=== PATIENT | female | born 1985 | race Caucasian/White ===

== ENCOUNTER → 2018-07-08 13:59 | Outpatient (CLI) | payer OTHER, SELFPAY ==
[2017-04-22 20:25] VITALS: BMI 35.1
--- NOTE | 2018-07-08 14:10 | RAD_ITS ---
STUDY: X-RAY - PELVIS REASON FOR EXAM: Female, 33 years old. Episcleritis. TECHNIQUE: One view of the pelvis was obtained. COMPARISON: None. FINDINGS: There is a non-specific bowel gas pattern. Normal visualized soft tissue structures. Normal bilateral iliac wings, sacroiliac joints and visualized sacrum. Normal visualized bilateral superior and inferior pubic rami. Normal pubic symphysis. Normal ischial tuberosities. Normal visualized right femoral head. Normal right acetabulum. Normal right hip joint. Normal visualized left femoral head. Normal left acetabulum. Normal left hip joint. RAD/Pelvis 1 or 2 Views IMPRESSION: Normal x-ray examination of the pelvis. No evidence of an inflammatory arthritis. Electronically Signed: Jean Pierre Casey MD at 3:08 EST , Service support ,
--- NOTE | 2018-07-08 14:10 | RAD_ITS ---
STUDY: X-RAY - LUMBAR SPINE REASON FOR EXAM: Female, 33 years old. Episcleritis. TECHNIQUE: 3 view(s) of the lumbar spine were obtained. COMPARISON: None FINDINGS: Normal lumbar lordosis. There is no substantial scoliosis. There is a normal alignment of the vertebrae. Normal vertebral bodies and endplates. Mild disc space narrowing L1-L2, L2-L3 and L5-S1. The soft tissue structures are unremarkable. Sacroiliac joints are normal. RAD/Lumbar Spine 2 or 3 Views IMPRESSION: Mild multilevel degenerative changes of the lumbar spine most prominent at L5-S1. Electronically Signed: Jean Pierre Casey MD at 3:15 EST , Service support ,
[2018-07-08 15:45] LABS: Absolute Lymphocyte Count 3.01 X10^3/ul (0.83-4.51); Absolute Neutrophil Count 5.3 X10^3/uL (2.0-7.7); Basophil# 0.03 X10^3/uL; Basophil% 0.3 % (0-1); Eosinophil# 0.18 X10^3/uL; Hematocrit 44.3 % (37-47); Hemoglobin 14.3 g/dl (12.0-15.0); Lymphocyte # 3.01 X10^3/ul (4.0); Lymphocyte % 32.9 % (19-41); Mean Corp Hgb Conc 32.3 g/gl (32-36); Mean Corpuscular Hgb 28.9 pg (27.0-32.0); Mean Corpuscular Volume 89.7 fL (81-99); Mean Platelet Vol. 10.5 fl (6.2-12.0); Monocyte# 0.61 X10^3/uL; Monocyte% 6.7 % (0-10); Neutrophil # 5.32 X10^3/uL (2.7-7.7); Platelet Count 214 K/mm3 (150-450); RBC Distribution Width CV 13.4 % (11.6-14.6); RBC Distribution Width SD 43.6 fl (35.1-43.9); Red Blood Count 4.94 M/mm3 (4.2-5.4); White Blood Count 9.2 K/mm3 (4.4-11.0)
[2018-07-08 15:47] LABS: POSITIVE COUNT NO; POSITIVE DIFFERENTIAL NO; POSITIVE MORPHOLOGY NO
[2018-07-08 15:52] LABS: ALB/GLOB Ratio 0.8 RATIO (0.9-2.4); AST(SGOT) 188 U/L (15-37); Alanine Aminotransfer ALT/SGPT 259 U/L (13-56); Albumin, Serum 3.7 g/dL (3.2-5.0); Alkaline Phosphatase 73 U/L (45-117); Anion Gap 8 (5-15); BUN 13 mg/dL (7-18); BUN/Creat Ratio 19.8 RATIO (10-20); Chloride 105 mmol/L (98-107); Creatinine, Serum 0.66 mg/dL (0.55-1.02); EST Glomerular Filtration Rate 110 mL/min (>60); Est Glom Filt Rate - Afr Amer 133 mL/min (>60); Globulin 4.5 g/dL (2.2-4.2); Glucose 90 mg/dL (74-106); Protein, Total 8.2 g/dL (6.4-8.2); Rheumatoid Factor < 10.0 IU/mL (<15); Sodium Level 140 mmol/L (136-145)
[2018-07-08 16:19] LABS: Erythrocyte Sedimentation Rate 25 mm/hr (0-20)
[2018-07-13 11:43] LABS: ANTINUCLEAR ANTIBODIES DIRECT Negative (Negative)
[2018-07-15 11:56] LABS: CCP IgG Antibodies 10 units (0-19); HLA B27 Negative (.)
== END ==
PROVIDERS: Referring Provider Internal Medicine Rheumatology; Visit Provider Internal Medicine Rheumatology
DX: H15.103 Unspecified episcleritis, bilateral (principal)
CPT/HCPCS: 36415; 72100; 72110; 72170; 80053; 81374; 85025; 85652; 86038; 86140; 86200; 86431

== ENCOUNTER → 2018-08-10 | Outpatient (CLI) | payer OTHER, SELFPAY ==
[2017-04-22 20:25] VITALS: BMI 35.1
[2018-08-10 17:59] LABS: Ferritin 39 ng/mL (8-252); Iron 98 ug/dL (50-170); Iron Binding Capacity,Total 373 ug/dL (250-450); PERCENT IRON SATURATION 26.3 % (15.0-55.0)
[2018-08-12 14:07] LABS: HEPATITIS B SURFACE AG Negative (Negative)
[2018-08-13 15:51] LABS: Anti-Mitochondrial AB <20.0 Units (0.0-20.0); Anti-Smooth Muscle ABS 9 Units (0-19); Hep B Surface Antibodies Non Reactive (.); Hep C Antibodies 0.1 s/co ratio (0.0-0.9); Hepatitis B Core AB IgM Negative (Negative)
== END | disposition home or self-care (01) ==
LOC: MTLAB 16:24
PROVIDERS: Referring Provider Internal Medicine Rheumatology; Visit Provider Internal Medicine Rheumatology
DX: H15.103 Unspecified episcleritis, bilateral (principal); R74.8 Abnormal levels of other serum enzymes
CPT/HCPCS: 36415; 82728; 83516; 83540; 83550; 86705; 86706; 86803; 87340

== ENCOUNTER → 2018-08-13 09:55 | Outpatient (CLI) | payer OTHER, SELFPAY ==
[2017-04-22 20:25] VITALS: BMI 35.1
--- NOTE | 2018-08-13 09:59 | US_ITS ---
STUDY: ABDOMINAL ULTRASOUND - RIGHT UPPER QUADRANT REASON FOR VISIT: Female, 33 years old. Elevated liver enzymes TECHNIQUE: Ultrasound evaluation of the right upper quadrant was performed with real-time and static sloan-scale imaging. TECHNICAL QUALITY: Limited. Examination limited by bowel gas. COMPARISON: None. FINDINGS: Liver: The liver measures 15 cm. There is increased echogenicity consistent with fatty infiltration. The bile ducts are within normal limits. There is hepatic color flow. The direction of portal flow is hepatopetal. There is no demonstrated mass lesion. Gallbladder: Normal distended gallbladder. The gallbladder wall measures 1.5 mm. There is a negative sonographic Bernstein's sign. There is no pericholecystic fluid. There are no gallstones. Common Bile Duct (C.B.D.): The common bile duct measures 2.2 mm. Pancreas: Normal size of the head, body and tail of the pancreas. There is normal echogenicity of the pancreas. There is no demonstrated pancreatic mass or cyst. Right Kidney: Normal size of the right kidney. The right kidney measures 11.8 cm. Normal renal cortex. The right cortex measures 1.3 cm. There is no demonstrated renal mass or cyst. There is no right hydronephrosis. US/Liver IMPRESSION: Mild fatty liver. Otherwise, unremarkable exam. Electronically Signed: Vincent Barreto DO at 11:45 EDT Tel , Service support ,
== END ==
PROVIDERS: Referring Provider Internal Medicine Rheumatology; Visit Provider Internal Medicine Rheumatology
DX: H15.103 Unspecified episcleritis, bilateral (principal)
CPT/HCPCS: 76705

== ENCOUNTER → 2018-09-30 13:44 | Outpatient (CLI) | payer OTHER, SELFPAY ==
[2018-09-30 13:23] VITALS: BMI 35.1
[2018-09-30 14:09] LABS: Absolute Lymphocyte Count 0.97 X10^3/ul (0.83-4.51); Absolute Neutrophil Count 6.5 X10^3/uL (2.0-7.7); Basophil# 0.01 X10^3/uL; Basophil% 0.1 % (0-1); Eosinophil# 0.02 X10^3/uL; Eosinophils% 0.3 % (0-5); Hematocrit 40.4 % (37-47); Hemoglobin 13.8 g/dl (12.0-15.0); Lymphocyte # 0.97 X10^3/ul (4.0); Lymphocyte % 12.2 % (19-41); Mean Corp Hgb Conc 34.2 g/gl (32-36); Mean Corpuscular Hgb 29.1 pg (27.0-32.0); Mean Corpuscular Volume 85.1 fL (81-99); Mean Platelet Vol. 10.6 fl (6.2-12.0); Monocyte# 0.39 X10^3/uL; Monocyte% 4.9 % (0-10); Neutrophil # 6.52 X10^3/uL (2.7-7.7); Neutrophil % 82.4 % (47-70); POSITIVE COUNT NO; POSITIVE DIFFERENTIAL NO; POSITIVE MORPHOLOGY NO; Platelet Count 186 K/mm3 (150-450); RBC Distribution Width CV 12.8 % (11.6-14.6); RBC Distribution Width SD 39.9 fl (35.1-43.9); Red Blood Count 4.75 M/mm3 (4.2-5.4); White Blood Count 7.9 K/mm3 (4.4-11.0)
[2018-09-30 14:14] LABS: Glucose Challenge Gest 1H 50g 139 mg/dL (70-140)
[2018-09-30 16:02] LABS: HIV - WCH Non-Reactive (Nonreactive); Rubella IgG 111.8 IU/mL
[2018-09-30 19:15] LABS: Chlamydia Trachomatis by PCR Negative (Negative); Neisserai gonorrhoeae by PCR Negative (Negative); Probe Check PASS; Sample Adequacy Control PASS; Specimen Processing Control PASS
[2018-10-02 01:45] LABS: Rapid Plasmin Reagin (RPR) NONREACTIVE (NONREACTIVE)
[2018-10-02 12:26] LABS: HEPATITIS B SURFACE AG Negative (Negative)
[2018-10-06 09:41] LABS: HPV APTIMA, High Risk Negative (Negative)
== END ==
PROVIDERS: Visit Provider Obstetrics & Gynecology
DX: O99.210 Obesity complicating pregnancy, unspecified trimester (principal); Z3A.00 Weeks of gestation of pregnancy not specified
CPT/HCPCS: 36415; 82950; 85025; 86592; 86703; 86762; 86850; 86900; 87086; 87340; 87491; 87591; 87624; 88175; G0145

== ENCOUNTER → 2018-10-16 12:51 | Outpatient (CLI) | payer OTHER, SELFPAY ==
[2018-09-30 13:23] VITALS: BMI 35.1
== END ==
PROVIDERS: Referring Provider Obstetrics & Gynecology; Visit Provider Obstetrics & Gynecology
DX: Z34.81 Encounter for supervision of other normal pregnancy, first trimester (principal)
CPT/HCPCS: 86850

== ENCOUNTER → 2018-11-18 09:52 | Outpatient (CLI) | payer OTHER, SELFPAY ==
[2018-10-27 15:45] VITALS: BMI 35.1
[2018-11-18 11:09] LABS: Glucose GTT-Gestation. Fasting 82 mg/dL (<105)
[2018-11-18 12:42] LABS: Glucose GTT-Gestational 2 Hr 103 mg/dL (<165)
[2018-11-18 12:43] LABS: Glucose GTT-Gestational 1 Hr 133 mg/dL (<190)
[2018-11-18 14:01] LABS: Glucose GTT-Gestational 3 Hr 106 L (<145)
== END ==
PROVIDERS: Referring Provider Obstetrics & Gynecology; Visit Provider Obstetrics & Gynecology
DX: R73.09 Other abnormal glucose (principal)
CPT/HCPCS: 36415; 82951; 82952

== ENCOUNTER → 2019-02-11 12:49 | Outpatient (CLI) | payer OTHER, SELFPAY ==
[2019-02-11 12:24] VITALS: BMI 35.1
[2019-02-11 13:18] LABS: Absolute Lymphocyte Count 1.64 X10^3/uL (0.83-4.51); Absolute Neutrophil Count 7.1 X10^3/uL (2.0-7.7); Basophil# 0.02 X10^3/uL; Basophil% 0.2 % (0-1); Eosinophil# 0.05 X10^3/uL; Eosinophils% 0.5 % (0-5); Hematocrit 35.3 % (37-47); Hemoglobin 11.7 g/dL (12.0-15.0); Lymphocyte # 1.64 X10^3/ul (4.0); Lymphocyte % 17.7 % (19-41); Mean Corp Hgb Conc 33.1 g/dL (32-36); Mean Corpuscular Hgb 29.2 pg (27.0-32.0); Mean Platelet Vol. 9.9 fl (6.2-12.0); Monocyte% 4.3 % (0-10); NRBC Flagged by Analyzer 0 % (0-5); Neutrophil # 7.13 X10^3/uL (2.7-7.7); Neutrophil % 77.1 % (47-70); Platelet Count 191 K/mm3 (150-450); RBC Distribution Width CV 13.2 % (11.6-14.6); RBC Distribution Width SD 42.5 fl (35.1-43.9); Red Blood Count 4.01 M/mm3 (4.2-5.4); White Blood Count 9.3 K/mm3 (4.4-11.0)
[2019-02-11 13:25] LABS: Glucose Challenge Gest 1H 50g 116 mg/dL (70-140)
== END ==
PROVIDERS: Referring Provider Obstetrics & Gynecology; Visit Provider Obstetrics & Gynecology
DX: Z34.92 Encounter for supervision of normal pregnancy, unspecified, second trimester (principal)
CPT/HCPCS: 36415; 82950; 85025; 86850; 86900; 86901

== ENCOUNTER → 2019-03-02 13:06 | Outpatient (CLI) | payer OTHER, SELFPAY ==
[2019-02-25 15:26] VITALS: BMI 35.1
[2019-03-02 13:45] LABS: Erythrocyte Sedimentation Rate 30 mm/hr (0-20)
[2019-03-02 13:46] LABS: Absolute Lymphocyte Count 1.63 X10^3/uL (0.83-4.51); Absolute Neutrophil Count 5.7 X10^3/uL (2.0-7.7); Basophil# 0.01 X10^3/uL; Basophil% 0.1 % (0-1); Eosinophil# 0.04 X10^3/uL; Eosinophils% 0.5 % (0-5); Hematocrit 35.6 % (37-47); Hemoglobin 11.7 g/dL (12.0-15.0); Lymphocyte # 1.63 X10^3/ul (4.0); Lymphocyte % 20.7 % (19-41); Mean Corp Hgb Conc 32.9 g/dL (32-36); Mean Corpuscular Hgb 29.2 pg (27.0-32.0); Mean Corpuscular Volume 88.8 fL (81-99); Mean Platelet Vol. 10.2 fl (6.2-12.0); Monocyte# 0.47 X10^3/uL; NRBC Flagged by Analyzer 0 % (0-5); Neutrophil # 5.71 X10^3/uL (2.7-7.7); Neutrophil % 72.3 % (47-70); Platelet Count 184 K/mm3 (150-450); RBC Distribution Width CV 13.3 % (11.6-14.6); RBC Distribution Width SD 43.4 fl (35.1-43.9); Red Blood Count 4.01 M/mm3 (4.2-5.4); White Blood Count 7.9 K/mm3 (4.4-11.0)
[2019-03-02 13:47] LABS: ALB/GLOB Ratio 0.6 RATIO (0.9-2.4); AST(SGOT) 9 U/L (15-37); Alanine Aminotransfer ALT/SGPT 11 U/L (13-56); Albumin, Serum 2.6 g/dL (3.2-5.0); Alkaline Phosphatase 80 U/L (45-117); Anion Gap 6 (5-15); BUN 9 mg/dL (7-18); BUN/Creat Ratio 17.5 RATIO (10-20); Calcium,Total 9.1 mg/dL (8.5-10.1); Chloride 109 mmol/L (98-107); Creatinine, Serum 0.52 mg/dL (0.55-1.02); EST Glomerular Filtration Rate 144 mL/min (>60); Est Glom Filt Rate - Afr Amer 175 mL/min (>60); Globulin 4.6 g/dL (2.2-4.2); Glucose 87 mg/dL (74-106); Potassium 3.8 mmol/L (3.5-5.1); Protein, Total 7.2 g/dL (6.4-8.2); Sodium Level 139 mmol/L (136-145)
== END ==
PROVIDERS: Referring Provider Internal Medicine Rheumatology; Visit Provider Internal Medicine Rheumatology
DX: H15.103 Unspecified episcleritis, bilateral (principal); K76.0 Fatty (change of) liver, not elsewhere classified; R74.8 Abnormal levels of other serum enzymes
CPT/HCPCS: 36415; 80053; 85025; 85652; 86140

== ENCOUNTER → 2019-04-08 17:22 | Outpatient (CLI) | payer OTHER, SELFPAY ==
[2019-04-08 15:42] VITALS: BMI 35.1
== END ==
PROVIDERS: Referring Provider Obstetrics & Gynecology; Visit Provider Obstetrics & Gynecology
DX: N76.89 Other specified inflammation of vagina and vulva (principal)
CPT/HCPCS: 87070; 87077; 87186; 87205

== ENCOUNTER → 2019-04-15 17:32 | Outpatient (CLI) | payer OTHER, SELFPAY ==
[2019-04-15 15:50] VITALS: BMI 35.1
== END ==
PROVIDERS: Visit Provider Obstetrics & Gynecology
DX: O09.519 Supervision of elderly primigravida, unspecified trimester (principal); Z3A.00 Weeks of gestation of pregnancy not specified
CPT/HCPCS: 87081

== ENCOUNTER 2019-05-03 13:05 | Inpatient (IN) | payer OTHER, SELFPAY ==
[2019-04-30 15:45] VITALS: BMI 35.1
--- NOTE | 2019-05-03 11:25 | US_ITS ---
STUDY: SECOND AND THIRD TRIMESTER OBSTETRICAL ULTRASOUND-Limited REASON FOR EXAM: Female, 33 years old GROWTH routine survey LMP: Unknown. TECHNIQUE: Transabdominal TECHNICAL QUALITY: Adequate. PRIOR ULTRASOUND: No recent studies FINDINGS: There is a single intrauterine fetus. The fetus is in a cephalic presentation. There is demonstrated cardiac activity with a heart rate of 133 bpm. There is a borderline low normal amniotic fluid volume. The largest amniotic fluid pocket measures 3.0 cm. The amniotic fluid index (GREG) is 4.0 cm. The placenta is posterior in location and is not low lying. There are Grade 2 placental changes. The cervix is not visualized. Incidental note that the cord is noted along the posterior neck BIOMETRY: BPD: 9.5 cm: 39 weeks, 0 days HC: 33.9 cm: 39 weeks, 1 days AC: 34.4 cm: 38 weeks, 3 days FL: 7.8 cm: 40 weeks, 0 days age by current US: 39 weeks, 1 days. ACE by current US: 05/09/2019. Estimated weight: 3614 grams, +/- 528 grams, 56 %. US/OB Limited With Biometrics IMPRESSION: Single live intrauterine at 39 weeks and 1 day by current ultrasound with ACE of 05/09/2019. Heart rate at 133 bpm. No suspicious sonographic findings, GREG however is low normal at 4.0 cm total Electronically Signed: Robinson Banerjee MD at 12:23 EST , Service support ,
[2019-05-03 13:28] VITALS: BMI 36.9
[2019-05-03] MEDS: Lactated Ringers 1,000 ML 50 ML IV (13:45)
[2019-05-03 14:06] LABS: Absolute Lymphocyte Count 1.62 X10^3/uL (0.83-4.51); Absolute Neutrophil Count 8.7 X10^3/uL (2.0-7.7); Basophil# 0.01 X10^3/uL; Basophil% 0.1 % (0-1); Eosinophil# 0.05 X10^3/uL; Eosinophils% 0.5 % (0-5); Hematocrit 34.9 % (37-47); Hemoglobin 11.7 g/dL (12.0-15.0); Lymphocyte # 1.62 X10^3/ul (4.0); Lymphocyte % 14.9 % (19-41); Mean Corp Hgb Conc 33.5 g/dL (32-36); Mean Corpuscular Hgb 28.3 pg (27.0-32.0); Mean Corpuscular Volume 84.3 fL (81-99); Mean Platelet Vol. 10.5 fl (6.2-12.0); Monocyte# 0.47 X10^3/uL; Monocyte% 4.3 % (0-10); NRBC Flagged by Analyzer 0 % (0-5); Neutrophil # 8.71 X10^3/uL (2.7-7.7); Neutrophil % 79.8 % (47-70); Platelet Count 182 K/mm3 (150-450); RBC Distribution Width SD 43.2 fl (35.1-43.9); Red Blood Count 4.14 M/mm3 (4.2-5.4); White Blood Count 10.9 K/mm3 (4.4-11.0)
[2019-05-03] MEDS: 0.9% Normal Saline Single 100 ML IV.SOLN. IY (14:15)
[2019-05-03] MEDS: Lactated Ringers 500 ML 999 ML IV ×2 (14:45→21:00)
[2019-05-03] MEDS: Oxytocin 30 units/NS 500 ml 30 UNITS/500 ML IV.SOLN IV (15:44)
--- NOTE | 2019-05-03 16:51 | HP.PCM_ITS ---
- Problem List (1) Oligohydramnios Status: Acute (2) Rh negative status during Status: Acute Comment: 28 weeks given and PRN (3) ASCUS of cervix with negative high risk HPV Status: Acute Comment: repeat in 1 year (4) Obesity affecting Status: Acute Qualifiers: Trimester: first trimester Qualified Code(s): O99.211 - Obesity complicating , first trimester Comment: 1 tm glucola abnormal- 3 hour gtt-normal, encouraged healthy weight gain (5) Status: Acute Qualifiers: Weeks of gestation: 39 weeks Qualified Code(s): Z3A.39 - 39 weeks gestation of Comment: nl NIPT, carrier and ntd declined (6) Encounter for supervision of high risk primigravida of advanced maternal age Status: Acute Comment: PRR ACE 05/06/19 girl name surprise Anthony History Date of Admission: 05/04/19 Final ACE: 05/06/19 Gestational age: 39 Weeks and 5 Days History of this : This is a 34 year-old, at 39 weeks gestational age presents for IOL secondary to oligohydramnios. She has had a complicated by advanced maternal age but otherwise no issues. She is a history of infertility. Patient was scanned for routine growth scan and fluid level was 4 cm today. Medical History: Medical History (Last Reviewed 04/30/19 @ 15:44 by Chey Rich) HPV test positive Hay fever J30.1 Surgical History: Surgical History (Last Reviewed 04/30/19 @ 15:44 by Chey Rich) History of shoulder surgery Z98.890 left Status post colposcopy Z98.890 S/P wisdom tooth extraction Z98.818 s/p cyst removal tailbone s/p finger surgery left Allergies No Known Allergies Allergy (Verified 04/30/19 15:44) Home Medications: Home Medications Vits [Prenatabs FA] 1 tab PO DAILY 05/03/19 Smoking Status: Former smoker Alcohol: None Number of Fetus(es): 1 NST - FHR Rate Baby A Baseline: 130 Variability:: Moderate Accelerations:: 15 x 15 Decelerations:: None NST Reactive:: Yes FHR Category:: Category I Uterine Activity:: Every 3 to 5 History Past Pregnancies: Past Pregnancies Previous early miscarriage Delivery Date Name GA/ Weeks Outcome Route Wt Sex Labor Length Anesthesia Delivery Location Provider FOB Labs: Mom's Current Diagnoses Supervision of elderly primigravida, unspecified trimester 05/03/19 Obesity complicating , first trimester 05/03/19 Mom's Problem List Problem Status Onset Code Oligohydramnios Acute O41.00X0 Mom's Labs & Results 05/03/19 05/03/19 13:45 13:45 WBC 10.9 RBC 4.14 L Hgb 11.7 L Hct 34.9 L MCV 84.3 MCH 28.3 MCHC 33.5 RDW Std Deviation 43.2 RDW Coeff of Jerardo 14.0 Plt Count 182 MPV 10.5 Immature Gran % (Auto) 0.400 Neut % (Auto) 79.8 H Lymph % (Auto) 14.9 L [place] % (Auto) 4.3 Eos % (Auto) 0.5 Baso % (Auto) 0.1 Absolute Neuts (auto) 8.7 H Absolute Lymphs (auto) 1.62 Nucleated RBC % 0 Blood Type O NEGATIVE Antibody Screen NEGATIVE Course Did the patient receive Yes care? Labs Blood Type: O RH: NEGATIVE RPR/VDRL/Syphilis Nonreactive Rubella status Immune HbSAg Negative Date Done: 09/30/18 Chlamydia Negative Gonorrhea Negative HIV/AIDS Non-Reactive Group B Strep: Negative Current Obstetrical History Gestational Diabetes No Incompetent Cervix No Infertility No IUGR No Macrosomia No Hypertension/Pre-eclampsia No Placenta Previa/Abruption No PTL/PROM No Uterine anomaly No Oligohydramnios Yes Polyhydramnios No Multiple gestation No Past Medical History Asthma No Diabetes No Hypertension No Heart disease No Mitral valve prolapse No Neurologic/Seizure disorder/ No Migraines Kidney disease No Liver disease Yes: fatty liver has gone down Varicosities No Clotting disorders/Hx of DVT No Thyroid Dysfunction No Other medical diseases No Psychiatric disorders No Major trauma No Abnormal PAP smear Yes: hpv Sleep apnea No Mammogram in the last 2 years No Social History Marital Status: Alleged father derik feliciano Hx Smoking Yes Smoking Status Former smoker Expected Infant Delivery Method: Spontaneous Vaginal Review of Systems Constitutional: Denies: Fever, Malaise Eyes: Denies: Blurred vision, Vision Change HEENT: Denies: Head Aches, Visual Changes Cardiovascular: Denies: Chest Pain, Palpitations Respiratory: Denies: Cough, Shortness of Breath, Wheezing Gastrointestinal: Denies: Abdominal Pain, Diarrhea, Nausea, Vomiting Genitourinary: Denies: Dysuria, Hematuria Musculoskeletal: Denies: Joint Pain, Muscle pain Skin: Denies: Lesions, Rash Neurological: Denies: Blurred vision, Focal weakness, Headaches Psychiatric: Denies: Anxiety, Depression Endocrine: Denies: Heat/ Cold Intolerance Hematologic/ Lymphatic: Denies: Easy Bruising, Easy Bleeding Physical Exam General: Alert, Cooperative, No apparent distress HEENT: Atraumatic, Normocephalic. Negative for: Thyromegaly, Lymphadenopathy Cardiovascular: Regular rate Lungs: Normal air movement Abdomen: Soft, Non Tender, Gravid Neurological: Deep Tendon Reflexes 2+/4 and Symmetrical, Neuro grossly intact. Negative for: Clonus MEDICAL LAB DIRECTOR: Normal external genitalia. Negative for: Vulvar lesions Estimated gestational size: Appropriate for gestational size Presentation: Cephalic Assessment/Plan All Active Problems (Last Reviewed 04/30/19 @ 15:44 by Chey Rich) Oligohydramnios (Acute) Acute sinusitis, unspecified (Acute) Rh negative status during (Acute) ASCUS of cervix with negative high risk HPV (Acute) Obesity affecting (Acute) (Acute) Encounter for supervision of high risk primigravida of advanced maternal age (Acute) Low lying placenta nos or without hemorrhage, unspecified trimester (Resolved) This is a 34 year-old, at 39 weeks gestational age Zentz for induction of labor secondary to oligohydramnios Patient presents IOL, plan management for , initially attempted placement of Crespo bulb and significant vaginal bleeding was noted through the catheter and t herefore it was removed and patient was noted to be 3/70 and -1 therefore the membranes were ruptured and internal monitors were placed. Fairly clear fluid was noted and no persistent bleeding was seen and patient was stable for continued induction of labor.. Pain management: [plans epidural]. GBS [negative]. Management of any complications: New onset diagnosis of oligohydramnios 4 cm I have reviewed the [facility] and made any clinically relevant updates..
[2019-05-03] MEDS: Lactated Ringers 1,000 ML 200 ML IV (20:02)
[2019-05-03] MEDS: Morphine 4 MG/ML Syringe IV (20:03)
[2019-05-03] MEDS: fentaNYL-bupivacaine (epidural) 100 ML BAG EPIDURAL (21:17)
[2019-05-04] MEDS: Lactated Ringers 1,000 ML 200 ML IV (01:41)
--- NOTE | 2019-05-04 02:00 | PCM.OPRPT ---
Problem List (1) Oligohydramnios Status: Acute (2) Rh negative status during Status: Acute Comment: 28 weeks given and PRN (3) ASCUS of cervix with negative high risk HPV Status: Acute Comment: repeat in 1 year (4) Obesity affecting Status: Acute Qualifiers: Trimester: first trimester Qualified Code(s): O99.211 - Obesity complicating , first trimester Comment: 1 tm glucola abnormal- 3 hour gtt-normal, encouraged healthy weight gain (5) Status: Acute Qualifiers: Weeks of gestation: 39 weeks Qualified Code(s): Z3A.39 - 39 weeks gestation of Comment: nl NIPT, carrier and ntd declined (6) Encounter for supervision of high risk primigravida of advanced maternal age Status: Acute Comment: PRR ACE 05/06/19 girl name surprise Anthony Report of Operation Date of Procedure: 05/04/19 Pre-Operative Diagnosis: iol oligo Post-Operative Diagnosis: same Vaginal Delivery Maternal Presentation: Medically Indicated Induction iol oligo Method of Induction: Pitocin Medical Reason for Induction: - - oligo Amniotic Membrane Rupture Type: Artificial Amniotic Fluid Description: Clear, Bloody Final ACE: 05/06/19 Gestational age: 39 Weeks and 6 Days Date of Procedure: 05/04/19 Pre-Operative Diagnosis: iol oligo Post-Operative Diagnosis: same Surgery/ Procedure Performed: Spontaneous Vaginal Delivery Type of Anesthesia: Epidural Description of Procedure: Patient began pushing and delivered the head in the [ISATU] presentation. The head was delivered atraumatically. The anterior and posterior shoulders delivered without complication followed by the rest of the and the was placed on the maternal abdomen. Delayed cord clamping was employed for approximately 60 seconds. Cord was clamped and cut and gentle traction was applied to the cord and the placenta delivered spontaneously immediately following it was noted to be intact with three-vessel cord. The perineum and vagina were inspected and noted to have a second-degree perineal laceration. EBL was 100 cc. There was uterine atony noted in the absence of hemorrhage which was treated with 1 dose of Methergine. Manual massage was also used.. Patient and tolerated delivery well. Presentation: ISATU Placental Delivery Description: Spontaneous Placenta Disposition: [facility] Cord Vessel Description: 3 Vessels Cord Entanglement: None Estimated Blood Loss: 400 A gender: Female Episiotomy Description: None Laceration: Perineal Extension/lac, 2nd degree Medications given after delivery: IV Pitocin, IM Methergin Complications: None Multi Select Codes - Urinary/Genital Urinary/Genital CPT Codes: 68318 Vaginal Delivery [facility]
[2019-05-04] MEDS: fentaNYL-bupivacaine (epidural) 100 ML BAG EPIDURAL (02:33)
[2019-05-04] MEDS: Oxytocin 30 units/NS 500 ml 30 UNITS/500 ML IV.SOLN 334 UNITS IV (02:53)
[2019-05-04] MEDS: Methylergonovine 0.2 MG/ML Ampul IM (02:54)
[2019-05-04] MEDS: Lactated Ringers 1,000 ML 999 ML IV (03:54)
[2019-05-04 04:08] LABS: Hemoglobin 10.6 g/dL (12.0-15.0)
[2019-05-04] MEDS: Naproxen 250 MG Tablet 500 MG PO ×3 (04:14→22:21)
[2019-05-04 08:00] VITALS: BP 128/77; PULSE 82; RESP 16; TEMP 36.2
[2019-05-04] MEDS: Acetaminophen 500 MG Tablet 1000 MG PO ×2 (08:09→15:30)
[2019-05-04 12:35] VITALS: BP 122/65; PULSE 88; RESP 16; TEMP 36.4
[2019-05-04 15:30] VITALS: BP 106/61; PULSE 74; RESP 16; TEMP 36.2
[2019-05-04] MEDS: oxyCODONE 5 MG Tablet PO ×2 (15:30→22:16)
--- NOTE | 2019-05-04 16:23 | NURSING ---
1500 k mihaela into see pt
[2019-05-04 20:50] VITALS: BP 101/62; PULSE 80; RESP 18; TEMP 36.2
[2019-05-05 00:45] VITALS: BP 105/58; PULSE 72; RESP 16; TEMP 36.6
[2019-05-05] MEDS: oxyCODONE 5 MG Tablet PO ×3 (02:58→15:36)
[2019-05-05] MEDS: Acetaminophen 500 MG Tablet 1000 MG PO ×2 (02:58→18:10)
[2019-05-05 05:46] VITALS: BP 101/57; PULSE 76; RESP 16; TEMP 36.3
[2019-05-05 09:31] VITALS: BP 107/60; PULSE 73; RESP 14; TEMP 36.4
[2019-05-05] MEDS: Naproxen 250 MG Tablet 500 MG PO ×2 (09:42→18:10)
--- NOTE | 2019-05-05 12:03 | PCM.PN.OB ---
Patient Problems: Active and Suspected Problems (Last Reviewed 04/30/19 @ 15:44 by Chey Rich) Oligohydramnios (Acute) Subjective: doing well no complaints pain controlled no CP SOB N V ambulating well tolerating po lochia moderate, going well - Physical Exam Vitals/I&O's: Vital Signs Temp Pulse Resp BP 97.6 F L 73 14 107/60 05/05/19 09:31 05/05/19 09:31 05/05/19 09:31 05/05/19 09:31 Oxygen Delivery Method Room Air Weight: 235 lb 14.314 oz Body Mass Index (BMI) 36.9 Intake and Output for Last 24 Hours 05/03/19 05/04/19 05/05/19 23:59 23:59 23:59 Intake Total 2025.6 / 5.6 2753.74 / 2753.74 Output Total 500 / 500 Balance 2025.6 / 2025.6 2253.74 / 2253.74 General: Alert, Oriented x3 Current Medications Acetaminophen (Tylenol) 1,000 mg PO Q8H PRN PRN PRN Reason: Pain Score 1-310 Last Admin: 05/05/19 02:58 Dose: 1,000 mg Documented by: Bisacodyl (Dulcolax) 10 mg RECTAL UD PRN PRN Reason: If no BM Dibucaine (Dibucaine) 1 applic TOPICAL TID PRN PRN; Protocol PRN Reason: Discomfort Hydrocortisone (Hytone) 1 applic TOPICAL TID PRN PRN; Protocol PRN Reason: Discomfort Methylergonovine Maleate (Methergine) 0.2 mg IM X1 PRN PRN Reason: Excess bleeding/uterine atony Last Admin: 05/04/19 02:54 Dose: 0.2 mg Documented by: Naproxen (Naprosyn) 500 mg PO Q8H PRN PRN PRN Reason: Pain Score 1-310 Last Admin: 05/05/19 09:42 Dose: 500 mg Documented by: Ondansetron HCl (Zofran) 4 mg IV Q4H PRN PRN PRN Reason: Nausea Oxycodone HCl (Oxyir) 5 - 10 mg PO Q4H PRN PRN PRN Reason: Pain Score 4-1010 Last Admin: 05/05/19 10:03 Dose: 5 mg Documented by: Multivit/Folic Acid/Iron (Prenatabs Fa) 1 tablet PO DAILY CARLOS Last Admin: 05/05/19 10:04 Dose: Not Given Documented by: Senna/Docusate Sodium (Senokot-S, Clara-Colace) 1 - 2 tablet PO DAILY PRN PRN PRN Reason: Constipation Simethicone (Mylicon) 80 mg PO PCHS PRN PRN Reason: Indigestion/Stomach pain Sodium Chloride () 5 - 15 ml IV UD PRN PRN Reason: SALINE FLUSH Medical Necessity - Tobacco Use Smoking Status: Former smoker Assessment/Plan All Active Problems (Last Reviewed 04/30/19 @ 15:44 by Chey Rich) Oligohydramnios (Acute) Acute sinusitis, unspecified (Acute) Rh negative status during (Acute) ASCUS of cervix with negative high risk HPV (Acute) Obesity affecting (Acute) (Acute) Encounter for supervision of high risk primigravida of advanced maternal age (Acute) Low lying placenta nos or without hemorrhage, unspecified trimester (Resolved) s/p PPD # 1 1. routine post delivery care 2. breast feeding- support given 3. rh positive 4. rubella immune
[2019-05-05 13:10] VITALS: BP 122/61; PULSE 71; RESP 18; TEMP 36.6
--- NOTE | 2019-05-05 16:31 | NURSING ---
no discharge instructions in pt.'s reports. this RN spoke to Dr. Kyle, physician gave instructions to this RN to give routine vaginal delivery instructions from M[facility]i for discharge.
[2019-05-05 17:55] VITALS: BP 117/65; PULSE 86; RESP 18; TEMP 36.6
== END 2019-05-05 18:50 | disposition home or self-care (01) | DRG 807 ==
LOC: WP 13:09
PROVIDERS: Admitting Provider Obstetrics & Gynecology; Referring Provider Obstetrics & Gynecology; Visit Provider Obstetrics & Gynecology
DX: O41.03X0 Oligohydramnios, third trimester, not applicable or unspecified (principal); Z37.0 Single live birth; O99.214 Obesity complicating childbirth; E66.9 Obesity, unspecified; O62.2 Other uterine inertia; O70.1 Second degree perineal laceration during delivery; Z3A.39 39 weeks gestation of pregnancy
CPT/HCPCS: 59025; 59050; 76816; 85018; 85025; 86850; 86900; 86901; 99218; J7120; G0378

== ENCOUNTER → 2019-05-09 07:49 | Outpatient (CLI) | payer OTHER, SELFPAY ==
[2019-05-03 13:28] VITALS: BMI 36.9
== END ==
PROVIDERS: Referring Provider Obstetrics & Gynecology; Visit Provider Obstetrics & Gynecology
DX: Z39.1 Encounter for care and examination of lactating mother (principal)
CPT/HCPCS: 96152

== ENCOUNTER → 2019-06-18 13:06 | Outpatient (CLI) | payer OTHER, SELFPAY ==
[2019-06-18 07:41] VITALS: BMI 36.9
[2019-06-18 13:27] LABS: Mucous, Urine 0 SEEN /hpf (<or=2+)
[2019-06-18 14:54] LABS: Color, Urine Yellow (Yellow); Glucose, Dipstick Normal (Normal); Ketone-Dipstick 5 mg/dl (Negative); Leukocyte Esterase-Dipstick 500 /ul (Negative); Nitrite-Dipstick Negative (Negative); Occult Blood-Urine 50 /ul (Negative); Protein-Dipstick 30 mg/dl (Negative); Specific Gravity, Urine 1.025 (1.002-1.030); Urine Bilirubin Dipstick Negative (Negative); Urine Clarity Cloudy (Clear); Urine Urobilinogen Normal (Normal)
[2019-06-18 15:18] LABS: Red Blood Cells-Urine 0-5 SEEN /hpf (0-5); Squamous Epithelial Cells - UA 25-50 SEEN /hpf (5-10); White Blood Cells 25-50 SEEN /hpf (0-5)
[2019-06-18 15:19] LABS: Bacteria 2+ /hpf (None Seen)
== END ==
PROVIDERS: Referring Provider Physician Assistant Surgical; Visit Provider Physician Assistant Surgical
DX: R39.15 Urgency of urination (principal)
CPT/HCPCS: 81001; 87086; 87088

== ENCOUNTER → 2019-06-24 15:07 | Outpatient (CLI) | payer OTHER, SELFPAY ==
[2019-06-23 15:27] VITALS: BMI 36.9
== END ==
PROVIDERS: Referring Provider Obstetrics & Gynecology; Visit Provider Obstetrics & Gynecology
DX: Z87.440 Personal history of urinary (tract) infections (principal)
CPT/HCPCS: 87086

== ENCOUNTER → 2020-06-12 14:32 | Outpatient (CLI) | payer OTHER, SELFPAY ==
[2020-06-02 15:09] VITALS: BMI 38.9
--- NOTE | 2020-06-12 14:33 | US_ITS ---
STUDY: ULTRASOUND BREAST - RIGHT REASON FOR EXAM: Female, 35 years old. Palpable lump in the right breast. The patient is currently nursing. TECHNIQUE: Axial and longitudinal images of the RIGHT breast were performed with a high resolution ultrasound transducer. # OF IMAGES: 20 COMPARISON: None. FINDINGS: RIGHT Breast: There is a 6 mm x 5 mm x 4 mm hypoechoic solid lesion just deep to the skin surface at the 2 o''clock position of the breast at 12 cm from nipple. This most likely represents an infected sebaceous cyst. IMPRESSION: 6 mm x 5 mm x 4 mm hypoechoic solid nodule deep to the skin surface at the 2 o''clock position of the breast at 12 cm from the nipple. This most likely represents a cutaneous lesion. ASSESSMENT CATEGORY: BIRADS Category 2: Benign. A letter regarding these results will be sent to the patient by the facility within 30 days. Electronically Signed: Julius Dailey MD at 15:43 EST , Service support , STUDY: ULTRASOUND BREAST - LEFT REASON FOR EXAM: Female, 35 years old. Palpable lump left breast. TECHNIQUE: Axial and longitudinal images of the LEFT breast were performed with a high resolution ultrasound transducer. # OF IMAGES: 20 COMPARISON: None. FINDINGS: LEFT Breast: The palpable abnormality corresponds to a 1.2 cm x 1.2 cm x 0.3 cm echogenic nodule at the 9 o''clock position of the breast at 12 cm from nipple. This is just deep to the skin surface. This may represent a small lipoma. US/Breast Limited Unilateral IMPRESSION: The palpable abnormality corresponds to a superficial nodule suggestive of a small lipoma. ASSESSMENT CATEGORY: BIRADS Category 2: Benign. A letter regarding these results will be sent to the patient by the facility within 30 days. Electronically Signed: Julius Dailey MD at 15:49 EST , Service support ,
== END ==
PROVIDERS: Referring Provider Obstetrics & Gynecology; Visit Provider Obstetrics & Gynecology
DX: N63.10 Unspecified lump in the right breast, unspecified quadrant (principal)
CPT/HCPCS: 76642

== ENCOUNTER → 2020-09-25 16:48 | Outpatient (CLI) | payer OTHER, SELFPAY ==
[2020-09-25 09:35] VITALS: BMI 38.3
[2020-09-28 20:08] LABS: Chlamydia By Nucleic Acid AMP Negative (Negative)
[2020-09-29 08:30] LABS: Gonococcus By Nucleic Acid AMP Negative (Negative)
== END ==
PROVIDERS: Referring Provider Obstetrics & Gynecology; Visit Provider Obstetrics & Gynecology
DX: Z11.3 Encounter for screening for infections with a predominantly sexual mode of transmission (principal)
CPT/HCPCS: 87491; 87591

== ENCOUNTER → 2020-10-12 13:57 | Outpatient (CLI) | payer OTHER, SELFPAY ==
[2020-09-25 09:35] VITALS: BMI 38.3
[2020-10-12 14:53] LABS: Absolute Lymphocyte Count 1.89 X10^3/uL (0.83-4.51); Absolute Neutrophil Count 5.9 X10^3/uL (2.0-7.7); Basophil# 0.03 X10^3/uL; Basophil% 0.4 % (0-1); Eosinophil# 0.05 X10^3/uL; Eosinophils% 0.6 % (0-5); Hemoglobin 13.8 g/dL (12.0-15.0); Lymphocyte # 1.89 X10^3/ul (0.83-4.51); Lymphocyte % 22.7 % (19-41); Mean Corp Hgb Conc 34.5 g/dL (32-36); Mean Corpuscular Hgb 30.3 pg (27.0-32.0); Mean Corpuscular Volume 87.9 fL (81-99); Mean Platelet Vol. 11.5 fl (6.2-12.0); Monocyte# 0.44 X10^3/uL; Monocyte% 5.3 % (0-10); NRBC Flagged by Analyzer 0 % (0-5); Neutrophil % 70.8 % (47-70); Platelet Count 200 K/mm3 (150-450); RBC Distribution Width CV 11.9 % (11.6-14.6); RBC Distribution Width SD 38.4 fl (35.1-43.9); Red Blood Count 4.55 M/mm3 (4.2-5.4); White Blood Count 8.3 K/mm3 (4.4-11.0)
[2020-10-12 15:17] LABS: Glucose Challenge Gest 1H 50g 130 mg/dL (70-140)
[2020-10-12 15:40] LABS: NATERA MAILED SPECIMEN
[2020-10-13 09:27] LABS: HIV - WCH Non-Reactive (Nonreactive); Hepatitis B Surface Antigen Non-Reactive (Nonreactive); Hepatitis C Antibody Non-Reactive (Nonreactive); Rubella IgG Reactive (Nonreactive); Syphilis Antibodies Non-reactive
== END ==
PROVIDERS: Referring Provider Obstetrics & Gynecology; Visit Provider Obstetrics & Gynecology
DX: Z34.90 Encounter for supervision of normal pregnancy, unspecified, unspecified trimester (principal)
CPT/HCPCS: 36415; 82950; 85025; 86703; 86762; 86780; 86803; 86850; 86900; 86901; 87340

== ENCOUNTER → 2020-11-22 17:03 | Outpatient (CLI) | payer OTHER, SELFPAY ==
[2020-11-22 15:18] VITALS: BMI 37.5
[2020-11-22 17:31] LABS: Amphetamine Urine VISTA NEGATIVE (<1000 ng/mL); Barbiturate Urine VISTA NEGATIVE (< 200 ng/mL); Benzodiazepine Urine VISTA NEGATIVE (< 200 ng/mL); Cocaine Urine VISTA NEGATIVE (< 300 ng/mL); Ecstacy Urine VISTA NEGATIVE (< 500 ng/mL); Methadone Urine VISTA NEGATIVE (< 300 ng/mL); PCP Urine VISTA NEGATIVE (< 25 ng/mL); THC Urine VISTA NEGATIVE (< 50 ng/mL); Vista UDS pH Range 6
== END ==
PROVIDERS: Visit Provider Nurse Practitioner Women's Health
DX: Z34.90 Encounter for supervision of normal pregnancy, unspecified, unspecified trimester (principal)
CPT/HCPCS: 80307

== ENCOUNTER → 2021-02-12 12:42 | Outpatient (CLI) | payer OTHER, SELFPAY ==
[2021-02-12 13:06] LABS: Absolute Lymphocyte Count 1.41 X10^3/uL (0.83-4.51); Absolute Neutrophil Count 6.4 X10^3/uL (2.0-7.7); Basophil# 0.02 X10^3/uL; Basophil% 0.2 % (0-1); Eosinophil# 0.06 X10^3/uL; Eosinophils% 0.7 % (0-5); Hematocrit 35.5 % (37-47); Hemoglobin 11.5 g/dL (12.0-15.0); Lymphocyte # 1.41 X10^3/ul (0.83-4.51); Lymphocyte % 17.1 % (19-41); Mean Corp Hgb Conc 32.4 g/dL (32-36); Mean Corpuscular Hgb 29.3 pg (27.0-32.0); Mean Corpuscular Volume 90.3 fL (81-99); Mean Platelet Vol. 10.2 fl (6.2-12.0); Monocyte# 0.35 X10^3/uL; Monocyte% 4.2 % (0-10); NRBC Flagged by Analyzer 0 % (0-5); Neutrophil # 6.37 X10^3/uL (2.7-7.7); Neutrophil % 77.4 % (47-70); Platelet Count 178 K/mm3 (150-450); RBC Distribution Width SD 46.5 fl (35.1-43.9); Red Blood Count 3.93 M/mm3 (4.2-5.4); White Blood Count 8.2 K/mm3 (4.4-11.0)
[2021-02-12 13:17] LABS: Glucose Challenge Gest 1H 50g 135 mg/dL (70-140)
== END ==
PROVIDERS: Referring Provider Obstetrics & Gynecology; Visit Provider Obstetrics & Gynecology
DX: O26.899 Other specified pregnancy related conditions, unspecified trimester (principal); Z67.91 Unspecified blood type, Rh negative; Z3A.00 Weeks of gestation of pregnancy not specified
CPT/HCPCS: 36415; 82950; 85025; 86850; 86900; 86901

== ENCOUNTER → 2021-02-13 14:13 | Outpatient (CLI) | payer OTHER, SELFPAY ==
--- NOTE | 2021-02-13 14:34 | US_ITS ---
STUDY: SECOND AND THIRD TRIMESTER OBSTETRICAL ULTRASOUND REASON FOR EXAM: Female, 35 years old growth @ 28 weeks d/t covid during LMP: 07/30/2020. TECHNIQUE: Transabdominal TECHNICAL QUALITY: Adequate. PRIOR ULTRASOUND: None. FINDINGS: There is a single intrauterine fetus. The fetus is in a cephalic presentation. There is demonstrated cardiac activity with a heart rate of 152 bpm. There is a normal amniotic fluid volume. The largest amniotic fluid pocket measures 5 cm x 2.8 cm. The amniotic fluid index (GREG) is 15.7 cm. The placenta is anterior in location and is not low lying. There are Grade 1 placental changes. The cervix measures 3.2 cm in length. The adnexal regions are not visualized. BIOMETRY: BPD: 7.36 cm: 29 weeks, 3 days HC: 27.37 cm: 29 weeks, 6 days AC: 24.17 cm: 28 weeks, 3 days FL: 5.48 cm: 28 weeks, 6 days CI: 78.5% FL/BPD: 74.4% FL/HC: FL/AC: 22.7% HC/AC: 1.13 age by current US: 29 weeks, 0 days. ACE by current US: 05/01/2020. Estimated weight: 1293 grams, +/- 194 grams, 58.2 %. Age by LMP: 28 weeks, 2 days. ACE by LMP: 05/06/2021. US/OB Limited With Biometrics IMPRESSION: Single live intrauterine gestation with a mean gestational age of 29 weeks. Electronically Signed: Julius Dailey MD at 15:43 EDT , Service support ,
== END ==
PROVIDERS: Referring Provider Obstetrics & Gynecology; Visit Provider Obstetrics & Gynecology
DX: O98.519 Other viral diseases complicating pregnancy, unspecified trimester (principal); U07.1 COVID-19; Z3A.00 Weeks of gestation of pregnancy not specified
CPT/HCPCS: 76816

== ENCOUNTER → 2021-03-12 14:03 | Outpatient (CLI) | payer OTHER, SELFPAY ==
--- NOTE | 2021-03-12 14:05 | US_ITS ---
STUDY: SECOND AND THIRD TRIMESTER OBSTETRICAL ULTRASOUND REASON FOR EXAM: Female, 35 years old . growth. LMP: 07/30/2020. TECHNIQUE: Transabdominal TECHNICAL QUALITY: Adequate. PRIOR ULTRASOUND: Comparison is made with prior study dated 02/13/2021. FINDINGS: There is a single intrauterine fetus. The fetus is in a cephalic presentation. There is demonstrated cardiac activity with a heart rate of 147 bpm. There is a normal amniotic fluid volume. The largest amniotic fluid pocket measures 4.3 cm. The amniotic fluid index (GREG) is 8.5 cm. The placenta is There are Grade 1 placental changes. The cervix measures 3.4 cm in length. The adnexal regions are not visualized. BIOMETRY: BPD: 8.3 cm: 33 weeks, 3 days HC: 31.2 cm: 34 weeks, 5 days AC: 29.7 cm: 33 weeks, 4 days FL: 6.5 cm: 33 weeks, 2 days CI: 79% FL/BPD: 77% FL/HC: FL/AC: 22% HC/AC: 1.05 age by current US: 33 weeks, 4 days. ACE by current US: 04/26/2021. Estimated weight: 2246 grams, +/- 337 grams, 84 %. age by prior US: 32 weeks, 6 days. ACE by prior US: 05/01/2021. Age by LMP: 32 weeks, 1 days. ACE by LMP: 05/06/2021. US/OB Limited With Biometrics IMPRESSION: Single live intrauterine gestation with a mean gestational age of 32 weeks and 6 days. The measurements obtained today fall within normal expected range. Electronically Signed: Julius Dailey MD at 15:46 EST , Service support ,
== END ==
PROVIDERS: Visit Provider Obstetrics & Gynecology
DX: O98.519 Other viral diseases complicating pregnancy, unspecified trimester (principal); U07.1 COVID-19; Z3A.00 Weeks of gestation of pregnancy not specified
CPT/HCPCS: 76816

== ENCOUNTER → 2021-03-21 12:32 | Outpatient (CLI) | payer OTHER, SELFPAY ==
--- NOTE | 2021-03-21 12:35 | US_ITS ---
STUDY: SECOND AND THIRD TRIMESTER OBSTETRICAL ULTRASOUND - LIMITED REASON FOR EXAM: Female, 35 years old GREG LMP: 07/30/2020. PRIOR ULTRASOUND: Comparison is made with a prior examination dated 03/12/2021. TECHNIQUE: Transabdominal TECHNICAL QUALITY: Adequate. FINDINGS: There is a single intrauterine fetus. The fetus is in a cephalic presentation. There is demonstrated cardiac activity with a heart rate of 144 bpm. There is a normal amniotic fluid volume. The largest amniotic fluid pocket measures 3.6 cm. The amniotic fluid index (GREG) is 10.4 cm. The placenta is anterior in location and is not low lying. There are Grade 1 placental changes. The cervix measures 3.8 cm in length. BIOMETRY: Age by LMP: 33 weeks, 3 days. ACE by LMP: 05/06/2021. US/OB Limited (No Biometrics) IMPRESSION: Normal amniotic fluid. Electronically Signed: Julius Dailey MD at 14:09 EST , Service support ,
== END ==
PROVIDERS: Referring Provider Obstetrics & Gynecology; Visit Provider Obstetrics & Gynecology
DX: O28.8 Other abnormal findings on antenatal screening of mother (principal); Z3A.00 Weeks of gestation of pregnancy not specified
CPT/HCPCS: 76815

== ENCOUNTER → 2021-03-27 09:06 | Outpatient (CLI) | payer OTHER, SELFPAY ==
--- NOTE | 2021-03-27 09:07 | US_ITS ---
STUDY: SECOND AND THIRD TRIMESTER OBSTETRICAL ULTRASOUND - LIMITED REASON FOR EXAM: Female, 35 years old GREG ONLY LMP: 07/30/2020 PRIOR ULTRASOUND: 03/21/2021 TECHNIQUE: Transabdominal TECHNICAL QUALITY: Adequate. FINDINGS: There is a single intrauterine fetus. The fetus is in a cephalic presentation. There is demonstrated cardiac activity with a heart rate of 123 bpm. There is a normal amniotic fluid volume. The largest amniotic fluid pocket measures 4.75 cm. The amniotic fluid index (GREG) is 11.04 cm. The placenta is anterior. There are Grade 1 placental changes. US/OB Limited (No Biometrics) IMPRESSION: Within normal limits amniotic fluid index. Electronically Signed: Staci Woodall MD at 13:22 EST Tel , Service support ,
== END ==
PROVIDERS: Visit Provider Obstetrics & Gynecology
DX: O28.8 Other abnormal findings on antenatal screening of mother (principal); Z3A.00 Weeks of gestation of pregnancy not specified
CPT/HCPCS: 76815

== ENCOUNTER → 2021-04-02 14:34 | Outpatient (CLI) | payer OTHER, SELFPAY ==
--- NOTE | 2021-04-02 14:36 | US_ITS ---
STUDY: SECOND AND THIRD TRIMESTER OBSTETRICAL ULTRASOUND - LIMITED REASON FOR EXAM: Female, 35 years old GREG LMP: 07/30/2020. PRIOR ULTRASOUND: Comparison is made with prior examination dated 03/27/2021. TECHNIQUE: Transabdominal TECHNICAL QUALITY: Adequate. FINDINGS: There is a single intrauterine fetus. The fetus is in a cephalic presentation. There is demonstrated cardiac activity with a heart rate of 131 bpm. There is a normal amniotic fluid volume. The largest amniotic fluid pocket measures 4.57 cm. The amniotic fluid index (GREG) is 11.64 cm. The placenta is anterior in location and is not low lying. There are Grade 1 placental changes. The cervix measures 4.0 cm in length. BIOMETRY: Age by LMP: 35 weeks, 1 days. ACE by LMP: RIAZ wesley 2021. US/OB Limited (No Biometrics) IMPRESSION: Normal amniotic fluid. Electronically Signed: Julius Dailey MD at 14:01 EST , Service support ,
== END ==
PROVIDERS: Visit Provider Obstetrics & Gynecology
DX: O28.8 Other abnormal findings on antenatal screening of mother (principal); Z3A.00 Weeks of gestation of pregnancy not specified
CPT/HCPCS: 76815

== ENCOUNTER → 2021-04-09 14:03 | Outpatient (CLI) | payer OTHER, SELFPAY ==
--- NOTE | 2021-04-09 14:05 | US_ITS ---
STUDY: SECOND AND THIRD TRIMESTER OBSTETRICAL ULTRASOUND REASON FOR EXAM: Female, 35 years old growth LMP: 07/30/2020. TECHNIQUE: Transabdominal TECHNICAL QUALITY: Adequate. PRIOR ULTRASOUND: Comparison is made with prior study dated 04/02/2021. FINDINGS: There is a single intrauterine fetus. The fetus is in a cephalic presentation. There is demonstrated cardiac activity with a heart rate of 144 bpm. There is a normal amniotic fluid volume. The largest amniotic fluid pocket measures 3.9 cm. The amniotic fluid index (GREG) is 11.5 cm. The placenta is anterior in location and is not low lying. There are Grade 1 placental changes. The cervix measures 3.4 cm in length. The adnexal regions are not visualized. BIOMETRY: BPD: 9.3 cm: 37 weeks, 5 days HC: 33.4 cm: 38 weeks, 1 days AC: 32.9 cm: 36 weeks, 5 days FL: 7 cm: 34 weeks, 6 days CI: 83% FL/BPD: 75% FL/HC: FL/AC: 21% HC/AC: 1.02 age by current US: 37 weeks, 0 days. ACE by current US: 04/30/2021. Estimated weight: 3059 grams, +/- 459 grams, 72 %. age by prior US: 37 weeks, 4 days. ACE by prior US: 04/26/2021. Age by LMP: 36 weeks, 1 days. ACE by LMP: 05/06/2021. US/OB Limited With Biometrics IMPRESSION: Single live uterine gestation with a mean gestational age of 37 weeks and 4 days. The measurements are obtained today following within the normal expected range. Electronically Signed: Julius Dailey MD at 15:51 EST , Service support ,
== END ==
PROVIDERS: Referring Provider Obstetrics & Gynecology; Visit Provider Obstetrics & Gynecology
DX: O09.529 Supervision of elderly multigravida, unspecified trimester (principal); O98.519 Other viral diseases complicating pregnancy, unspecified trimester; U07.1 COVID-19; Z3A.36 36 weeks gestation of pregnancy
CPT/HCPCS: 76816; 87081

== ENCOUNTER → 2021-04-16 13:31 | Outpatient (CLI) | payer OTHER, SELFPAY ==
--- NOTE | 2021-04-16 13:34 | US_ITS ---
STUDY: SECOND AND THIRD TRIMESTER OBSTETRICAL ULTRASOUND - LIMITED REASON FOR EXAM: Female, 35 years old. GREG PRIOR ULTRASOUND: 12.6.21 TECHNIQUE: Transabdominal TECHNICAL QUALITY: Adequate. FINDINGS: There is a single intrauterine fetus. The fetus is in a cephalic presentation. There is demonstrated cardiac activity with a heart rate of 148 bpm. There is a normal amniotic fluid volume. The largest amniotic fluid pocket measures 8.4 cm. The amniotic fluid index (GREG) is 13.1 cm. The placenta is anterior in location and is not low lying. There are Grade 1 placental changes. The cervix is obscured by overlying bowel gas and cannot be identified. . age by prior US: 38 weeks, 0 days. ACE by prior US: 12.27.21. Age by LMP: 37 weeks, 1 days. ACE by LMP: 1.2.22. US/OB Limited (No Biometrics) IMPRESSION: There is a single live intrauterine with a heart rate of 148 bpm. Age by LMP: 37 weeks, 1 days. ACE by LMP: 1.2.22. GREG is 13.1. Electronically Signed: Sergio Love MD at 16:13 EST , Service support ,
== END ==
PROVIDERS: Visit Provider Obstetrics & Gynecology
DX: O28.8 Other abnormal findings on antenatal screening of mother (principal); Z3A.00 Weeks of gestation of pregnancy not specified
CPT/HCPCS: 76815

== ENCOUNTER → 2021-04-23 13:32 | Outpatient (CLI) | payer OTHER, SELFPAY ==
--- NOTE | 2021-04-23 13:34 | US_ITS ---
STUDY: SECOND AND THIRD TRIMESTER OBSTETRICAL ULTRASOUND - LIMITED REASON FOR EXAM: Female, 35 years old GREG LMP: 07/30/2020. PRIOR ULTRASOUND: Comparison is made with prior study dated 04/16/2021. TECHNIQUE: Transabdominal TECHNICAL QUALITY: Adequate. FINDINGS: There is a single intrauterine fetus. The fetus is in a cephalic presentation. There is demonstrated cardiac activity with a heart rate of 145 bpm. There is a normal amniotic fluid volume. The largest amniotic fluid pocket measures 3.4 cm. The amniotic fluid index (GREG) is 10.1 cm. The placenta is anterior in location and is not low lying. There are Grade 2 placental changes. BIOMETRY: Age by LMP: 38 weeks, 1 days. ACE by LMP: 05/06/2021. US/OB Limited (No Biometrics) IMPRESSION: Normal amniotic fluid index. Electronically Signed: Julius Dailey MD at 15:20 EST , Service support ,
== END ==
PROVIDERS: Visit Provider Obstetrics & Gynecology
DX: O28.8 Other abnormal findings on antenatal screening of mother (principal); Z3A.38 38 weeks gestation of pregnancy
CPT/HCPCS: 76815; 87635; U0005; U0003

== ENCOUNTER 2021-04-30 07:16 | Inpatient (IN) | payer OTHER, SELFPAY ==
[2021-04-30] VITALS (47 sets, daily range): BP systolic 96–148; BP diastolic 49–83; PULSE 60–111; RESP 18; TEMP 36.2–36.9; O2SAT 82–100; BMI 36.2
[2021-04-30 08:14] LABS: Absolute Lymphocyte Count 1.68 X10^3/uL (0.83-4.51); Absolute Neutrophil Count 5.5 X10^3/uL (2.0-7.7); Basophil# 0.03 X10^3/uL; Basophil% 0.4 % (0-1); Eosinophil# 0.08 X10^3/uL; Hematocrit 33.1 % (37-47); Hemoglobin 11.3 g/dL (12.0-15.0); Lymphocyte # 1.68 X10^3/ul (0.83-4.51); Mean Corp Hgb Conc 34.1 g/dL (32-36); Mean Corpuscular Hgb 29.1 pg (27.0-32.0); Mean Corpuscular Volume 85.3 fL (81-99); Mean Platelet Vol. 10.4 fl (6.2-12.0); Monocyte# 0.34 X10^3/uL; Monocyte% 4.5 % (0-10); NRBC Flagged by Analyzer 0 % (0-5); Neutrophil # 5.49 X10^3/uL (2.7-7.7); Neutrophil % 71.8 % (47-70); Platelet Count 157 K/mm3 (150-450); RBC Distribution Width CV 14.5 % (11.6-14.6); RBC Distribution Width SD 44.2 fl (35.1-43.9); Red Blood Count 3.88 M/mm3 (4.2-5.4); White Blood Count 7.6 K/mm3 (4.4-11.0)
[2021-04-30] MEDS: Lactated Ringers 1,000 ML 50 ML IV (08:25)
[2021-04-30] MEDS: Oxytocin 30 units/NS 500 ml 30 UNITS/500 ML IV.SOLN IV (08:26)
[2021-04-30] MEDS: 0.9% Normal Saline Single 100 ML IV.SOLN. INTRA-UTER (08:42)
[2021-04-30] MEDS: Lactated Ringers 500 ML 999 ML IV (12:51)
[2021-04-30] MEDS: fentaNYL-bupivacaine (epidural) 100 ML BAG EPIDURAL (13:52)
--- NOTE | 2021-04-30 15:50 | HP.PCM.OB_ITS ---
HPI - General General Date of Admission: 04/30/21 HPI Narrative RAKAN ARMSTRONG, is a 35 F who presents for IOL sec to A. no vb lof good fm no regular ctx Maternal Data Information ACE Calculator Estimated Delivery Date Method Current WG Current Estimate 05/06/21 LMP (Certain) 39w 1d Other Estimates 05/06/21 [facility]d [facility] Medical History (Updated 04/30/21 @ 15:[address] Janine Reese MD) Advanced maternal age (AMA) in COVID-19 affecting , antepartum Encounter for screening for COVID-19 Hay fever Hematoma HPV (human papilloma virus) infection HPV test positive Home Medications vit,[id number] 1 tab PO DAILY 05/03/19 [History Last Taken 04/30/21 07:00] cholecalciferol (vitamin D3) 25 mcg (1,000 unit) capsule 25 mcg PO DAILY 07/04/20 [History Last Taken 11/24/20 09:00] blood sugar diagnostic #50 ea 02/12/21 [Rx Last Taken Unknown] blood-glucose meter #1 ea 02/12/21 [Rx Last Taken Unknown] lancets 30 gauge #100 ea 02/12/21 [Rx Last Taken Unknown] Baby Aspirin 1 cap PO.IVFORM DAILY 04/30/21 [History Last Taken 04/29/21 08:00] Allergy/AdvReac Type Severity Reaction Status Date / Time No Known Allergies Allergy Verified 04/23/21 14:39 Family History Grandmother CVA (cerebral vascular accident) Brother Diabetes Grandfather Leukemia Heart disease Mother Hypertension Father Hypertension Surgical History History of incision and drainage s/p cyst removal s/p finger surgery S/P shoulder surgery S/P wisdom tooth extraction Status post colposcopy Social History household members: spouse and children current occupational status: employed current occupation: [employer] Smoking Status: Former smoker second hand exposure: No alcohol intake: current alcohol intake frequency: holidays/special occasions only details: prior to substance use type: does not use caffeine: No what type of physical activity do you participate in: walking frequency: 3-4 times per week seatbelt use: always do you feel safe at home: Yes additional social history: -Anthony- [employer] Patient works in [place] History 3 Elective abortions 1 Hx Para 1 Spontaneous abortions Hx # Term Pregnancies Ectopic pregnancies Hx # Pregnancies Multiple births # of living children 1 Past Pregnancies Del. Date Name GA/Weeks Outcome Route Bth Weight Infant Gen [facility]19 Zita 39 live - full term Female epi dural [facility] Delivery Date: 2 degree lac Macarena Valverde Delivery Date: 05/04/19 IoL oligio Onelia Heaton Visit Details Expected Delivery Route/Plan Labor Preferences- labor support person: [] labor intervention preferences: [] pain management options preferred: [] cut cord/dad catch: [] : [] PP control planned: [] discussed possible routes of delivery and associated risks: [] special requests: [] Plans covid status: vaccinated flu vaccine: given tdap vaccine: given rhogam: declined hsband also negative LARC form signed: movement and labor precautions reviewed. Problem list reviewed and updated with the most current plan of care details and appropriate orders placed. Relevant counseling for the gestational age provided. Continue routine care and follow up unless otherwise noted in visit notes/problem list details OB Flowsheet Initial Weight: 245 lb Date -?-?-?-?-?-?-?-?-?-?-?-?- EGA Weight BP Urine Prot -?-?-?-?-?-?-?-?-?-?-?-?- Glucose FHR FuHt Pres Dilation -?-?-?-?-?-?-?-?-?-?-?-?- Effaced St Visit Note 09/25/20 -?-?-?-?-?-?-?-?-?-?-?-?- 8w 1d 245 lb (+0 oz) 245 lb (+0 oz) 132/82 -?-?-?-?-?-?-?-?-?-?-?-?- 170 -?-?-?-?-?-?-?-?-?-?-?-?- SM- CRL 1.6cm co ns with MLMP 10/26/20 -?-?-?-?-?-?-?-?-?-?-?-?- 12w 4d 239 lb 8 oz (-5 lb 8 oz) 114/70 Negative -?-?-?-?-?-?-?-?-?-?-?-?- Negative 158 -?-?-?-?-?-?-?-?-?-?-?-?- GP - no cramping or bleeding. Anatomy scan ordered. 11/22/20 -?-?-?-?-?-?-?-?-?-?-?-?- 16w 3d 234 lb 2 oz (-10 lb 14 oz) 120/62 Trace -?-?-?-?-?-?-?-?-?-?-?-?- Negative 151 -?-?-?-?-?-?-?-?-?-?-?-?- MH-states severe food aversion, no nausea. Jem 5#. Discussed more freq meals. Stop PNV and Vit D for a few days to see if helps. Anatomy US sched. No VB, LOF. Call report next week 12/22/20 -?-?-?-?-?-?-?-?-?-?-?-?- 20w 5d 232 lb (-13 lb) 100/80 -?-?-?-?-?-?-?-?-?-?-?-?- 150 130 -?-?-?-?-?-?-?-?-?-?-?-?- SM- no vb lof so me no regular ctx 01/19/21 -?-?-?-?-?-?-?-?-?-?-?-?- 24w 5d 233 lb (-12 lb) 102/60 Negative -?-?-?-?-?-?-?-?-?-?-?-?- Negative 135 -?-?-?-?-?-?-?-?--?-?-?-?- SM- no vb crampi ng repeat us 02/12/21 -?-?-?-?-?-?-?-?-?-?-?-?- 28w 1d 234 lb (-11 lb) 122/80 -?-?-?-?-?-?-?-?-?-?-?-?- 135 29 -?-?-?-?-?-?-?-?-?-?-?-?- SM- borderline B S will do testing at home declines 3 hour gct. she is waiting to ear 's blood type before she gets rhogam. 02/26/21 -?-?-?-?-?-?-?-?-?-?-?-?- 30w 1d 233 lb 6 oz (-11 lb 10 oz) 120/60 Negative -?-?-?-?-?-?-?-?-?-?-?-?- Negative 145 30 -?-?-?-?-?-?-?-?-?-?-?-?- SM- no vb lof go od fm no regular ctx reviewed home BS and WNL 03/12/21 -?-?-?-?-?-?-?-?-?-?-?-?- 32w 1d 237 lb 8 oz (-7 lb 8 oz) 116/70 Negative -?-?-?-?-?-?-?-?-?-?-?-?- Negative 140 33 -?-?-?-?-?-?-?-?-?-?-?-?- SM- no vb lof go od fm no regular ctx discussed bordelrine greg, and with hisotry of covid, oligo in previous preg, and ama recommend increased testing with GREG/nst weekly until delivery 03/20/21 -?-?-?--?-?-?-?-?-?-?-?-?- 33w 2d 239 lb 2 oz (-5 lb 14 oz) 130/68 Negative -?-?-?-?-?-?-?-?-?-?-?-?- Negative 140 -?-?-?-?-?-?-?-?-?-?-?-?- JV- reactive nst . For rpt greg tomorrow. if 5 or lower will send to l&D for fluids and steroids then return in 24 hrs for rpt greg and 2nd dose. Pt had covid during . we discussed continuing baby asa. 03/26/21 -?-?-?-?-?-?-?-?-?-?-?-?- 34w 1d 238 lb (-7 lb) 114/74 Negative -?-?-?-?-?-?-?-?-?-?-?-?- Negative 140 -?-?-?-?-?-?-?-?-?-?-?-?- SM- no vb lof go od fm no regular ctx 04/02/21 -?-?-?-?-?-?-?-?-?-?-?-?- 35w 1d 239 lb 8 oz (-5 lb 8 oz) 124/64 Negative -?-?-?-?-?-?-?-?-?-?-?-?- Negative 140 35 -?-?-?-?-?-?-?-?-?-?-?-?- SM- no vb lof go od fm nor egular ctx 04/09/21 -?-?-?-?-?-?-?-?-?-?-?-?- 36w 1d 238 lb (-7 lb) 100/70 Negative -?-?-?-?-?-?-?-?-?-?-?-?- Negative 140 36 -?-?--?-?-?-?-?-?-?-?-?-?- SM- no vb lof go od fm no regular ctx 04/16/21 -?-?-?-?-?-?-?-?-?-?-?-?- 37w 1d 238 lb (-7 lb) Negative -?-?-?-?-?-?-?-?-?-?-?-?- Negative -?-?-?-?-?-?-?-?-?-?-?-?- 04/23/21 -?-?-?-?-?-?-?-?-?-?-?-?- 38w 1d 237 lb (-8 lb) 112/86 Negative -?-?-?-?-?-?-?-?-?-?-?-?- Negative 140 38 Cephalic 2 -?-?-?-?-?-?-?-?-?-?-?-?- 60 -2 SM- no vb lof good fm no regular ctx plan IOL 39 04/30/21 -?-?-?-?-?-?-?-?-?-?-?-?- 39w 1d 231 lb 7.766 oz (-13 lb 8.234 oz) 116/57 122/72 113/66 140/76 119/67 129/69 135/83 123/58 109/52 117/56 107/54 106/53 111/54 96/63 -?-?-?-?-?-?-?-?-?-?-?-?- -?-?-?-?-?-?-?-?-?-?-?-?- NST FHR Rate Baby A Baseline: 130 Variability:: Moderate Accelerations:: 15 x 15 Decelerations:: None NST Reactive:: Yes FHR Category:: Category I Uterine Activity:: irregular ROS Constitutional Constitutional: Reports systems reviewed and no addt'l complaints, except as documented Eyes Eyes: Denies change in vision ENT HEENT: Reports systems reviewed and no addt'l complaints, except as documented; Denies headache(s) Cardiovascular Cardiovascular: Reports systems reviewed and no addt'l complaints, except as documented; Denies chest pain or dyspnea Respiratory/Chest Respiratory/Chest: Reports systems reviewed and no addt'l complaints, except as documented Gastrointestinal Gastrointestinal: Reports systems reviewed and no addt'l complaints, except as documented; Denies abdominal pain Genitourinary Genitourinary: Reports systems reviewed and no addt'l complaints, except as documented, contractions Details: present (irregular) and movement Details: present; Denies dysuria or genital lesions Musculoskeletal Musculoskeletal: Reports systems reviewed and no addt'l complaints, except as documented Neurologic Neurologic: Reports systems reviewed and no addt'l complaints, except as documented Endocrine Endocrinology: Reports systems reviewed and no addt'l complaints, except as documented Vital Signs Vital Signs Vital Signs: 04/30/21 07:50 04/30/21 08:47 04/30/21 08:52 Temperature 98.5 F 98.5 F Temperature Source Temporal Temporal Pulse Rate 95 83 88 Blood Pressure 116/57 L 122/72 H BP Systolic 116 122 BP Diastolic 57 72 Pulse Ox 98 04/30/21 10:01 04/30/21 11:06 04/30/21 11:08 Temperature 97.8 F 97.7 F L Temperature Source Temporal Temporal Pulse Rate 64 67 74 Blood Pressure 113/66 140/76 H BP Systolic 113 140 BP Diastolic 66 76 Pulse Ox 85 04/30/21 11:50 04/30/21 11:51 04/30/21 11:52 Temperature 97.8 F Temperature Source Temporal Pulse Rate 64 108 H Blood Pressure 119/67 BP Systolic 119 BP Diastolic 67 Pulse Ox 89 100 04/30/21 12:53 04/30/21 12:55 04/30/21 13:31 Temperature 98.5 F Temperature Source Temporal Pulse Rate 74 Blood Pressure 129/69 H BP Systolic 129 BP Diastolic 69 Pulse Ox 99 82 04/30/21 13:34 04/30/21 13:39 04/30/21 13:44 Temperature Temperature Source Pulse Rate 70 83 72 Blood Pressure BP Systolic BP Diastolic Pulse Ox 100 100 100 04/30/21 13:46 04/30/21 13:49 04/30/21 13:52 Temperature Temperature Source Pulse Rate 74 71 76 Blood Pressure 135/83 H 123/58 H BP Systolic 135 123 BP Diastolic 83 58 Pulse Ox 92 04/30/21 13:55 04/30/21 13:57 04/30/21 14:00 Temperature 98.5 F Temperature Source Temporal Pulse Rate 70 71 69 Blood Pressure 109/52 L BP Systolic 109 BP Diastolic 52 Pulse Ox 100 100 04/30/21 14:01 04/30/21 14:05 04/30/21 14:08 Temperature Temperature Source Pulse Rate 60 83 69 Blood Pressure 117/56 L 107/54 L BP Systolic 117 107 BP Diastolic 56 54 Pulse Ox 100 04/30/21 14:10 04/30/21 14:11 04/30/21 14:15 Temperature Temperature Source Pulse Rate 70 67 66 Blood Pressure 106/53 L BP Systolic 106 BP Diastolic 53 Pulse Ox 100 100 04/30/21 14:16 04/30/21 14:18 04/30/21 14:20 Temperature Temperature Source Pulse Rate 72 111 H Blood Pressure 111/54 L BP Systolic 111 BP Diastolic 54 Pulse Ox 84 98 04/30/21 14:50 04/30/21 14:51 Temperature 98.5 F Temperature Source Temporal Pulse Rate Blood Pressure 96/63 BP Systolic 96 BP Diastolic 63 Pulse Ox 100 Weight Weight: 231 lb 7.766 oz Body Mass Index (BMI) 36.2 Physical Exam Const alert, oriented x3, no apparent distress and healthy appearing HEENT normocephalic and moist oral mucous membranes Head and Scalp: atraumatic Neck full ROM, no lymphadenopathy, supple and thyroid normal General: trachea midline Lymph Lymphatic: no lymphadenopathy noted Chest inspection of chest normal Resp normal respiratory effort Cardio regular rate GI normal to inspection, nondistended, normoactive bowel sounds, soft to palpation and non-tender Inspection: gravid external exam normal Manual OB Exam: estimated gestational size appropriate, presentation cephalic, dilated, effaced and station Extremity normal to inspection General Extremity: Negative for edema Skin no rashes or lesions noted Neuro no focal motor deficits and deep tendon reflexes 2+ bilaterally Motor Exam: strength 5/5 throughout and clonus absent Psych mental status grossly normal Labs Labs Labs: Blood Type O NEGATIVE Antibody Screen NEGATIVE Hct 33.1 % (37-47) L Hgb 11.3 g/dL (12.0-15.0) L Obstetrics US Syphilis Total Ab Non-reactive Rubella IgG Antibody Reactive (Nonreactive) Hep Bs Antigen Non-Reactive (Nonreactive) Neisseria gonorrhoeae DNA (BALDO) Negative (Negative) HIV 1&2 Antibody Non-Reactive (Nonreactive) C.trachomatis DNA (PCR) Negative (Negative) Glucose 1 Hr 50 gm 135 mg/dL (70-140) Rhogam given: No Miscellaneous Test Assessment & Plan (1) : QUALIFIERS: Weeks of gestation: 38 weeks Qualified Code(s): Z3A.38 - 38 weeks gestation of COMMENT: GBS negative, declined carrier and ntd screening, NIPT low risk; NL anatomy (2) Supervision of other normal : COMMENT: PRR ACE 05/06/21, girl, PC: Zita Spouse Anthony (3) Rh negative state in antepartum period: COMMENT: rhogam at 28 weeks and PRN bleeding- patient declining. 's blood type is neg per lab draw (4) COVID-19 vaccine administered: COMMENT: Received both doses. (5) History of oligohydramnios: COMMENT: growth us 36 weeks (6) Abnormal glucose affecting : COMMENT: borderline abnormal declined 3 hour, reviewed home BS logs and all WNL (7) GREG (amniotic fluid index) borderline low: COMMENT: weekly GREG/nst until delivery, 03/27 nl (8) AMA (advanced maternal age) multigravida 35+: COMMENT: weekly nst/greg until delivery. NIPT low risk. (9) Lab test negative for COVID-19 virus: COMMENT: 04/23/21 (10) COVID-19 affecting , antepartum: COMMENT: start baby ASA; growth US at 28 weeks q4w (11) Encounter for induction of labor: COMMENT: pit and fb. epi PRN
[2021-04-30] MEDS: Oxytocin 30 units/NS 500 ml 30 UNITS/500 ML IV.SOLN 334 UNITS IV (17:13)
--- NOTE | 2021-04-30 17:24 | OP.PCM_ITS ---
Assessment & Plan (1) : QUALIFIERS: Weeks of gestation: 38 weeks Qualified Code(s): Z3A.38 - 38 weeks gestation of COMMENT: GBS negative, declined carrier and ntd screening, NIPT low risk; NL anatomy (2) Encounter for induction of labor: COMMENT: pit and fb. epi PRN (3) Supervision of other normal : COMMENT: PRR ACE 05/06/21, girl, PC: Zita Spouse Anthony (4) COVID-19 vaccine administered: COMMENT: Received both doses. (5) Rh negative state in antepartum period: COMMENT: rhogam at 28 weeks and PRN bleeding- patient declining. 's blood type is neg per lab draw (6) History of oligohydramnios: COMMENT: growth us 36 weeks (7) Abnormal glucose affecting : COMMENT: borderline abnormal declined 3 hour, reviewed home BS logs and all WNL (8) GREG (amniotic fluid index) borderline low: COMMENT: weekly GREG/nst until delivery, 03/27 nl (9) AMA (advanced maternal age) multigravida 35+: COMMENT: weekly nst/greg until delivery. NIPT low risk. (10) Lab test negative for COVID-19 virus: COMMENT: 04/23/21 (11) COVID-19 affecting , antepartum: COMMENT: start baby ASA; growth US at 28 weeks q4w (12) Vaginal delivery: COMMENT: IOL ama SM girl Sharmaine Maternal Data Information ACE Calculator Estimated Delivery Date Method Current WG Current Estimate 05/06/21 LMP (Certain) 39w 1d Other Estimates 05/06/21 Ultrasound #1 39w 1d Vaginal Delivery Operative Information Date of Procedure: 04/30/21 Pre-Operative Diagnosis: IOL ama Post-Operative Diagnosis: same Surgery / Procedure Performed: Spontaneous Vaginal Delivery Type of Anesthesia: Epidural Special Medications: none Drain: Crespo to straight drain Estimated Blood Loss: 100 Fluids Replaced: crystalloid Findings Description of Procedure: Patient began pushing and delivered the head in the ISATU presentation. The head was delivered atraumatically . The anterior and posterior shoulders delivered without complication followed by the rest of the and the was placed on the maternal abdomen. Delayed cord clamping was employed for approximately 60 seconds. Cord was clamped and cut and gentle traction was applied to the cord and the placenta delivered spontaneously immediately following it was noted to be intact with three-vessel cord. The per ineum and vagina were inspected and noted to have a second-degree perineal laceration repaired in the usual fashion with 3-0 Vicryl Rapide. EBL was 100 cc. Patient and infant tolerated delivery well. Presentation: ISATU Amniotic Membrane Rupture Type: Artificial Amniotic Fluid Description: Clear Placental Delivery Description: Spontaneous Placenta Disposition: [facility] Cord Vessel Description: 3 Vessels Cord Entanglement: None Infant A Gender: Female Delayed Cord Clamping: Yes Post Vaginal Delivery Medications Given After Delivery: IV Pitocin Episiotomy Description: None Laceration: Perineal Extension/lac and 2nd degree Complication Complications: None Procedures Urinary/Genital [id number]: [id number] [facility]
--- NOTE | 2021-04-30 17:27 | PCM.DC ---
Discharge Instructions Diet Discharge Diet: No restrictions Activity Discharge Activity: Return to Normal Activity, May Not Drive (while taking narcotic pain medications.) and May Shower May resume sexual activity in: 4-6 weeks Dressing / Incision Call your doctor if your incision/area has: Continuous Slow Oozing, Sudden Increased Bleeding, Increased Pain/ Swelling, Increased Redness and Foul Smelling Discharge Follow Up Care Please Follow Up With: Janine Reese MD When: Call [phone] to make an appointment with your doctor in 6 weeks. If you had elevated blood pressure or 4th degree laceration, you will need to be seen in 2 weeks. Test Results: Test results from this visit will be discussed in further detail at your follow-up appointment, if applicable. Discharge Plan Admission Admit Date/Time: 04/30/21 07:16 Attending Provider: Janine Reese Primary Care Provider: Care Physician,Peg Primary Discharge Orders/Prescriptions Prescriptions: No Action cholecalciferol (vitamin D3) 25 mcg (1,000 unit) capsule 25 mcg PO DAILY RF: 0 (DME) blood-glucose meter [Blood Glucose Monitoring] Kit See Rx Instructions .ROUTE .MEDSUPPLY Qty: 1 RF: 0 (DME) Blood Glucose Test Strip See Rx Instructions .ROUTE .MEDSUPPLY Qty: 50 RF: 0 (DME) lancets 30 gauge misc See Rx Instructions .ROUTE .MEDSUPPLY Qty: 100 RF: 0 vit,[id number] 1 TABLET tablet 1 tab PO DAILY RF: 0 Baby Aspirin 1 cap PO.IVFORM DAILY RF: 0 Referrals / Follow Up: Care Physician,No Primary [Primary Care Provider] - Disposition Disposition (needs filled in before D/C Order can be placed): Home, Self Care
[2021-04-30] MEDS: 0.9% Saline Lock 10 ML Syringe IV (19:45)
[2021-04-30] MEDS: Docusate Sodium 100 MG Capsule PO (22:35)
[2021-04-30] MEDS: Acetaminophen 500 MG Tablet 1000 MG PO (22:35)
[2021-04-30] MEDS: Naproxen 500 MG Tablet PO (22:39)
[2021-05-01] MEDS: Benzocaine/Lanolin/Aloe Vera 1 SPRAY EACH TOPICAL (03:27)
[2021-05-01 03:30] VITALS: BP 107/47; PULSE 58; RESP 18
[2021-05-01] MEDS: Acetaminophen 500 MG Tablet 1000 MG PO ×2 (04:57→11:24)
[2021-05-01] MEDS: Naproxen 500 MG Tablet PO ×2 (06:36→15:12)
[2021-05-01] MEDS: oxyCODONE 5 MG Tablet PO ×3 (06:49→15:11)
--- NOTE | 2021-05-01 07:50 | PN.OBGYN_ITS ---
Subjective Subjective Patient doing well without complaints. Tolerating PO. Ambulating and voiding without difficulty. feeding well. Denies chest pain, shortness of breath, calf pain/swelling, fevers, chills, lightheadedness. Objective Data Objective Data Vital Signs: Vital Signs Temp Pulse Resp BP Pulse Ox 97.2 F L 58 L 18 107/47 L 100 04/30/21 23:59 05/01/21 03:30 05/01/21 03:30 05/01/21 03:30 04/30/21 19:28 Oxygen Delivery Method Room Air Weight: 231 lb 7.766 oz Body Mass Index (BMI) 36.2 Intake & Output: Intake and Output for Last 24 Hours 04/29/21 04/30/21 05/01/21 23:59 23:59 23:59 Intake Total 2225.87 / 2225.87 Output Total 600 / 600 300 / 300 Balance 1625.87 / 1625.87 -300 / -300 Lab / Micro Data Result Diagrams: 04/30/21 07:55 Labs: Laboratory Results - last 24 hr 04/30/21 07:55: WBC 7.6, RBC 3.88 L, Hgb 11.3 L, Hct 33.1 L, MCV 85.3, MCH 29.1, MCHC 34.1, RDW Std Deviation 44.2 H, RDW Coeff of Jerardo 14.5, Plt Count 157, MPV 10.4, Immature Gran % (Auto) 0.300, Neut % (Auto) 71.8 H, Lymph % (Auto) 22.0, [place] % (Auto) 4.5, Eos % (Auto) 1.0, Baso % (Auto) 0.4, Absolute Neuts (auto) 5.5, Absolute Lymphs (auto) 1.68, Nucleated RBC % 0 04/30/21 07:55: Blood Type O NEGATIVE, Antibody Screen NEGATIVE ROS Constitutional Constitutional: Reports systems reviewed and no addt'l complaints, except as documented Cardiovascular Cardiovascular: Reports systems reviewed and no addt'l complaints, except as documented Respiratory/Chest Respiratory/Chest: Reports systems reviewed and no addt'l complaints, except as documented Gastrointestinal Gastrointestinal: Reports systems reviewed and no addt'l complaints, except as documented Physical Exam Const alert, oriented x3 and no apparent distress HEENT Head and Scalp: atraumatic Resp normal respiratory effort GI soft to palpation and non-tender Bimanual Exam - Vag & Uterus: uterus non-tender Uterus Palpation: uterus fundus firm (below Umbilicus) Assessment & Plan (1) Vaginal delivery: COMMENT: IOL ama SM girl Sharmaine PLAN: s/p PPD # 1 1. routine post delivery care 2. breast feeding- support given 3. rh neg 4. rubella immune
[2021-05-01 08:07] VITALS: BP 116/67; PULSE 65; RESP 16; TEMP 36.4
[2021-05-01] MEDS: Docusate Sodium 100 MG Capsule PO (11:24)
[2021-05-01 13:20] VITALS: BP 111/58; PULSE 59; RESP 16; TEMP 36.3
[2021-05-01 18:00] VITALS: BP 114/63; PULSE 55; RESP 18; TEMP 36.3
== END 2021-05-01 18:45 | disposition home or self-care (01) | DRG 807 ==
PROVIDERS: Admitting Provider Obstetrics & Gynecology; Visit Provider Obstetrics & Gynecology
DX: O41.03X0 Oligohydramnios, third trimester, not applicable or unspecified (principal); Z37.0 Single live birth; O70.1 Second degree perineal laceration during delivery; Z86.16 Personal history of COVID-19; Z87.891 Personal history of nicotine dependence; Z3A.38 38 weeks gestation of pregnancy
CPT/HCPCS: 59025; 59050; 85025; 86850; 86900; 86901; 99218; J7120; A4216; G0378

== ENCOUNTER 2021-06-12 15:38 | Outpatient (CLI) | payer OTHER, SELFPAY ==
[2021-06-12 16:35] LABS: T4 Free Direct 0.55 ng/dL (0.76-1.46)
[2021-06-15 20:48] LABS: HPV APTIMA, High Risk Negative (Negative)
== END 2021-06-12 23:59 | disposition home or self-care (01) ==
PROVIDERS: Referring Provider Obstetrics & Gynecology; Visit Provider Obstetrics & Gynecology
DX: Z12.4 Encounter for screening for malignant neoplasm of cervix (principal)
CPT/HCPCS: 36415; 84439; 84443; 87624; 88175; G0145

== ENCOUNTER 2021-06-14 16:34 | Outpatient (CLI) | payer OTHER, SELFPAY ==
--- NOTE | 2021-06-14 16:37 | US_ITS ---
STUDY: THYROID ULTRASOUND REASON FOR EXAM: Female, 36 years old. Thyromegaly TECHNIQUE: Ultrasound evaluation of the thyroid was performed with real-time and static sloan-scale imaging. COMPARISON: None. FINDINGS: RIGHT LOBE: The right lobe of the thyroid gland measures 4.0 x 1.6 x 1.8 cm. There is a heterogeneous echotexture. There is a pattern of solid lobulated-appearing nodules throughout the bilateral thyroid. On the right side there is a nodule that measures 0.8 x 0.5 cm. There is a nodule measuring 7.2 mm. There is one measuring 1.2 x 1.1 cm. LEFT LOBE: The left lobe of the thyroid gland measures 3.2 x 1.5 x 1.7 cm. There is a heterogeneous echotexture. There is a left of midline isthmus partially left thyroid nodule which is likely clinically palpable measuring approximately 4.5 x 4.9 x 3.0 cm with cystic solid components and internal vascularity. There are small nodules in the left thyroid measuring 4 to 8 mm. ISTHMUS: The isthmus measures 27 mm there is a left of midline mass measuring 4.5 x 4.9 x 3.0 cm with mixed echogenicity and internal vascular flow.. The regional lymph nodes are normal. US/Thyroid IMPRESSION: Dominant mass in the left of midline is isthmus, detailed above which measures at least 4.5 x 4.9 x 3.0 cm with mixed echogenicity cystic and solid components with internal vascular flow. This is likely clinically palpable. Recommend consideration for biopsy to exclude neoplasm. There is an overall pattern of inhomogeneity of the thyroid gland. Electronically Signed: Caridad Panda MD at 3:20 EST ,
== END 2021-06-14 23:59 | disposition home or self-care (01) ==
LOC: US 16:36
PROVIDERS: Referring Provider Obstetrics & Gynecology; Visit Provider Obstetrics & Gynecology
DX: E01.0 Iodine-deficiency related diffuse (endemic) goiter (principal)
CPT/HCPCS: 76536

== ENCOUNTER 2021-06-20 15:48 | Outpatient (CLI) | payer OTHER, SELFPAY ==
--- NOTE | 2021-06-20 15:00 | FLU_PTH ---
PATIENT: RAKAN ARMSTRONG LOC: [facility]#:[id number] AGE/SX: 36/F ROOM: RE06/20/[address]: Dr. Blake Guerrier MD : 1985 BED: DIS: 06/20/2021 SPEC #: [id number] RECD: 06/21/21 08:20 STATUS: AIDA JAZMIN #: [id number] CB: 06/20/21 15:[address]: Blake Guerrier DEPT: CYTOLOGY RECD BY: Dayna Orellana ENTERED: 06/21/21 12:59 SP TYPE: Fluid OTHR DR: No Primary Care Phys Tissues: A - Thyroid gland, NOS B - Thyroid gland, NOS C - Thyroid gland, NOS D - Thyroid gland, NOS E - Thyroid gland, NOS Procedures: Special Stain Group II Surgery Specimen Level IV Cytospin Fluid Cytology Other HEADER OPERATION: Left thyroid fine needle aspiration PRE-OP DIAGNOSIS: Left thyroid nodule TISSUE SUBMITTED: A ? Left upper pole nodule fluid, B ? Left upper pole nodule x4 slides, C ? Left isthmus nodule fluid, D ? Left isthmus nodule x4 slides, E ? Left isthmus fluid DIAGNOSIS CYTOLOGY A. Left upper pole nodule fluid, FNA (cytospin and cell block): A few clusters of benign follicular cells noted. B. Left upper pole nodule, FNA (smears): Consistent with benign follicular/colloid nodule. Adequate for evaluation. C. Left isthmus nodule fluid, FNA (cytospin and cell block): Consistent with cyst contents. See comment. D. Left isthmus nodule, FNA (smears): Consistent with benign follicular/colloid nodule with cystic changes. Adequate for evaluation. E. Left isthmus nodule fluid, FNA (cytospin and cell block): Consistent with cyst contents. See comment. SJ:sp 06/22/2021 COMMENT C & E. The specimen predominantly consists of macrophages and a few benign follicular cells. Correlation with clinical, radiologic findings and appropriate follow up are necessary. CYTOLOGY STUDY Slides are reviewed. CYTOLOGY GROSS A - Received is 20 ml of red cloudy fluid with particles labeled with the patient's name and and designated per the requisition as left upper pole nodule. Submitted for cytology preparation including cell block. B - Received are four smears labeled with the patient's name and designated per the requisition as left upper pole nodule. Submitted for staining. C - Received is 20 ml of red cloudy fluid with particles labeled with the patient's name and and designated per the requisition as left isthmus nodule. Submitted for cytology preparation including cell block. D - Received are four smears labeled with the patient's name and designated per the requisition as left isthmus nodule. Submitted for staining. E - Received is 4.5 ml of reddish-brown cloudy fluid labeled with the patient's name and and designated per the requisition as left isthmus. Submitted for cytology preparation including cell block. / sp 06/21/2021 TC:5 CPT: 08314 x3, 98375 x5
[2021-06-22 08:12] LABS: Thyroid Peroxidase AB 341 IU/mL (0-34)
== END 2021-06-20 23:59 | disposition home or self-care (01) ==
PROVIDERS: Referring Provider Surgery; Visit Provider Surgery
DX: E04.1 Nontoxic single thyroid nodule (principal); E01.0 Iodine-deficiency related diffuse (endemic) goiter
CPT/HCPCS: 36415; 86376; 88108; 88161; 88305; 88313

== ENCOUNTER → 2022-01-08 | Outpatient (CLI) | payer OTHER, SELFPAY ==
[2022-01-08 12:11] LABS: Free T3 2.6 pg/mL (2.18-3.98); T4 Total, Thyroxin 4.6 ug/dL (4.8-13.9)
== END | disposition home or self-care (01) ==
PROVIDERS: Referring Provider Surgery; Visit Provider Surgery
DX: E03.9 Hypothyroidism, unspecified (principal); E04.2 Nontoxic multinodular goiter
CPT/HCPCS: 36415; 84436; 84443; 84481

== ENCOUNTER → 2022-02-27 | Outpatient (CLI) | payer OTHER, SELFPAY ==
[2022-02-27 14:37] LABS: Free T3 3.5 pg/mL (2.18-3.98); T4 Total, Thyroxin 12.3 ug/dL (4.8-13.9); Thyroid Stim Hormone (TSH) 0.05 uIU/mL (0.358-3.74)
== END | disposition home or self-care (01) ==
LOC: PAVLAB 13:42
PROVIDERS: Referring Provider Surgery; Visit Provider Surgery
DX: E03.9 Hypothyroidism, unspecified (principal)
CPT/HCPCS: 36415; 84436; 84443; 84481

== ENCOUNTER → 2022-04-15 | Outpatient (CLI) | payer OTHER, SELFPAY ==
[2022-04-15 13:55] LABS: T4 Total, Thyroxin 9.8 ug/dL (4.8-13.9); Thyroid Stim Hormone (TSH) 0.03 uIU/mL (0.358-3.74)
== END | disposition home or self-care (01) ==
LOC: PAVLAB 13:24
PROVIDERS: Referring Provider Surgery; Visit Provider Surgery
DX: E03.9 Hypothyroidism, unspecified (principal); E04.2 Nontoxic multinodular goiter
CPT/HCPCS: 36415; 84436; 84443; 84481

== ENCOUNTER → 2022-06-01 | Outpatient (CLI) | payer OTHER, SELFPAY ==
[2022-06-01 12:09] LABS: Free T3 2.8 pg/mL (2.18-3.98); Thyroid Stim Hormone (TSH) 0.08 uIU/mL (0.358-3.74)
== END | disposition home or self-care (01) ==
PROVIDERS: Visit Provider Surgery
DX: E03.9 Hypothyroidism, unspecified (principal); E04.2 Nontoxic multinodular goiter
CPT/HCPCS: 36415; 84436; 84443; 84481